=== PATIENT | male | born 1960 | race African-American/Black ===

== ENCOUNTER 2018-10-07 11:22 | Inpatient (IN) | payer MEDICAID ==
[~2018-10-07] VITALS: Ht 180.3 cm; Wt 103.4 kg
[2018-10-07] MEDS ORDERED: HYDROCODONE/APAP 7.5/325MG 1 TAB TABLET PO ONE (16:15)
[2018-10-07 16:25] LABS: CLARITY URINE CLEAR (CLEAR); COLOR URINE YELLOW (YELLOW); KETONES URINE NEGATIVE (NEGATIVE); LEUKOCYTE ESTERASE URINE NEGATIVE (NEGATIVE); NITRITE URINE NEGATIVE (NEGATIVE); OCCULT BLOOD URINE NEGATIVE (NEGATIVE); PROTEIN URINE NEGATIVE (NEGATIVE); SPECIFIC GRAVITY URINE 1.022 (1.005-1.030); UROBILINOGEN URINE 0.2 E.U./dL (0.2-1.0)
[2018-10-07 16:51] LABS: *AMPHETAMINES SCREEN URINE NEGATIVE (NEGATIVE); *BARBITURATES SCREEN URINE NEGATIVE (NEGATIVE); *BENZODIAZEPINES SCREEN URINE NEGATIVE (NEGATIVE); *COCAINE SCREEN URINE PRESUMTIVE POSITIVE (NEGATIVE)
[2018-10-07 16:52] LABS: CANNABINOID URINE SCREEN NEGATIVE (NEGATIVE); METHADONE URINE SCREEN NEGATIVE (NEGATIVE); OPIATES URINE SCREEN NEGATIVE (NEGATIVE); PHENCYCLIDINE URINE SCREEN NEGATIVE (NEGATIVE)
[2018-10-07 17:00] LABS: BASOPHILS % 0.3 % (0.0-2.0); EOSINOPHILS % 5.8 % (0.0-5.0); HEMATOCRIT. 39.9 % (42.0-52.0); HEMOGLOBIN. 12.6 g/dL (14.0-18.0); LYMPHOCYTES % 33.4 % (20.0-50.0); MEAN CORPUSCULAR HEMOGLOBIN 25.7 pg (28.0-32.0); MEAN PLATELET VOLUME 7.7 fl (7.4-10.4); MONOCYTES % 5.7 % (2.0-8.0); NEUTROPHILS % 54.8 % (40.0-76.0); PLATELET 218 x1000/uL (130-400); RED BLOOD CELL COUNT 4.92 mill/uL (4.7-6.1); RED CELL DISTRIBUTION WIDTH 18.4 % (11.6-14.6)
[2018-10-07 17:05] LABS: CHLORIDE 107 mEq/L (98-107)
[2018-10-07] MEDS ORDERED: MORPHINE SULFATE 4 MG/ML CPJ (NOT FOR IM USE) IV ONE (18:45)
[2018-10-07] MEDS ORDERED: SODIUM CHLORIDE 0.9% 1,000 ML IV ONE (18:45)
[2018-10-07] MEDS ORDERED: ONDANSETRON HCL 4MG/2ML INJ IV PRN (20:00)
[2018-10-07] MEDS ORDERED: CYCLOBENZAPRINE 10MG TABLET PO PRN (20:00)
[2018-10-07] MEDS ORDERED: ACETAMINOPHEN 325MG TABLET PO PRN (20:00)
[2018-10-07] MEDS ORDERED: ZOLPIDEM TARTRATE 5MG TABLET PO PRN (21:00)
[2018-10-08] MEDS: HYDROCODONE/ACETAMINOPHEN 10/325MG TABLET PO PRN ×3 (04:55→19:55)
[2018-10-08 05:15] LABS: BASOPHILS % 0.3 % (0.0-2.0); EOSINOPHILS % 5.1 % (0.0-5.0); HEMATOCRIT. 39.2 % (42.0-52.0); HEMOGLOBIN. 12.6 g/dL (14.0-18.0); LYMPHOCYTES % 29.7 % (20.0-50.0); MEAN CORPUSCULAR HEMOGLOBIN 25.7 pg (28.0-32.0); MEAN CORPUSCULAR VOLUME 80.1 fL (80.0-94.0); MEAN PLATELET VOLUME 7.8 fl (7.4-10.4); MONOCYTES % 8.2 % (2.0-8.0); NEUTROPHILS % 56.7 % (40.0-76.0); PLATELET 223 x1000/uL (130-400); RED BLOOD CELL COUNT 4.89 mill/uL (4.7-6.1); RED CELL DISTRIBUTION WIDTH 18.1 % (11.6-14.6)
[2018-10-08 05:19] LABS: CHLORIDE 109 mEq/L (98-107)
[2018-10-08] MEDS ORDERED: MORPHINE SULFATE 4 MG/ML CPJ (NOT FOR IM USE) IV PRN (14:45)
[2018-10-08 15:16] VITALS: BP 146/79
[2018-10-08 16:00] VITALS: BP 146/79
[2018-10-08 19:51] VITALS: BP_SYST 13; BP_SYST 138; BP_DIAS 62; BP_DIAS 63
[2018-10-08] MEDS ORDERED: AMLO10TA80 MT (19:51)
[2018-10-08] MEDS ORDERED: LISI10TA5 MT (19:51)
[2018-10-08] MEDS ORDERED: ATOR40TA70 MT (19:51)
[2018-10-08] MEDS ORDERED: TRAZ150T78 MT (19:51)
[2018-10-08] MEDS ORDERED: HYDR25TA MT (19:51)
[2018-10-08] MEDS ORDERED: TRAZODONE HCL 100MG TABLET PO SCH (21:00)
[2018-10-08] MEDS ORDERED: MEDICATION NOT ON FORMULARY EA (Trazodone Hcl 1 TAB) MT SCH (21:00)
[2018-10-08] MEDS ORDERED: ATORVASTATIN CALCIUM 40MG TABLET PO SCH (21:00)
[2018-10-09] VITALS: BP 129/68
[2018-10-09] MEDS: HYDROCODONE/ACETAMINOPHEN 10/325MG TABLET PO PRN ×4 (03:08→17:02)
[2018-10-09 04:00] VITALS: BP 154/64
[2018-10-09 06:30] LABS: BASOPHILS % 0.3 % (0.0-2.0); EOSINOPHILS % 5.1 % (0.0-5.0); HEMATOCRIT. 40.4 % (42.0-52.0); HEMOGLOBIN. 13.2 g/dL (14.0-18.0); LYMPHOCYTES % 28.2 % (20.0-50.0); MEAN CORPUSCULAR HEMOGLOBIN 26.4 pg (28.0-32.0); MEAN CORPUSCULAR VOLUME 80.5 fL (80.0-94.0); MEAN PLATELET VOLUME 8.2 fl (7.4-10.4); MONOCYTES % 7.8 % (2.0-8.0); NEUTROPHILS % 58.6 % (40.0-76.0); PLATELET 228 x1000/uL (130-400); RED BLOOD CELL COUNT 5.01 mill/uL (4.7-6.1); RED CELL DISTRIBUTION WIDTH 18.2 % (11.6-14.6)
[2018-10-09 07:08] LABS: CHLORIDE 109 mEq/L (98-107)
[2018-10-09 08:00] VITALS: BP 135/75
[2018-10-09] MEDS ORDERED: HYDROCHLOROTHIAZIDE 25MG TABLET PO SCH (09:00)
[2018-10-09] MEDS ORDERED: LISINOPRIL 10MG TABLET PO SCH (09:00)
[2018-10-09] MEDS ORDERED: MEDICATION NOT ON FORMULARY EA (Lisinopril 1 TAB) MT SCH (09:00)
[2018-10-09] MEDS ORDERED: AMLODIPINE 10MG TABLET PO SCH (09:00)
[2018-10-09 16:24] VITALS: BP 122/78
[2018-10-09 17:02] VITALS: BP 122/78
== END 2018-10-09 17:46 | disposition home or self-care (01) | DRG 347 ==
LOC: ER 11:22 → 7WST 18:23 → EDBEDREQ 18:26 → EDBEDREQSVC 22:59 → CANRESERV 10-08 07:28 → ENRESERV 10-08 07:28
PROVIDERS: ADMIT Internal Medicine; ATTEND Internal Medicine
DX: M48.061 Spinal stenosis, lumbar region without neurogenic claudication (principal); N17.0 Acute kidney failure with tubular necrosis; E44.1 Mild protein-calorie malnutrition; F20.9 Schizophrenia, unspecified; M48.07 Spinal stenosis, lumbosacral region; D64.9 Anemia, unspecified; M19.90 Unspecified osteoarthritis, unspecified site; F14.90 Cocaine use, unspecified, uncomplicated; E66.9 Obesity, unspecified; I10 Essential (primary) hypertension; M47.816 Spondylosis without myelopathy or radiculopathy, lumbar region; Z91.81 History of falling; Z68.31 Body mass index [BMI] 31.0-31.9, adult; Z71.51 Drug abuse counseling and surveillance of drug abuser; Z71.3 Dietary counseling and surveillance
CPT/HCPCS: 36415; 71045; 72100; 72148; 80048; 80305; 83036; 83880; 84484; 93005; 93970; 96374; 96375; 97116; 97162; 99285; J2270; J7030